=== PATIENT | female | born 1975 | race Caucasian/White ===

== ENCOUNTER 2016-08-29 17:27 | Outpatient (CLI) | payer OTHER ==
[2016-08-30] MEDS ORDERED: MULTIPLE VITAMIN PO (11:59)
== END 2016-08-29 23:00 ==
LOC: LAB SRH 17:27
DX: Z01.818 Encounter for other preprocedural examination (principal); N93.9 Abnormal uterine and vaginal bleeding, unspecified; D25.1 Intramural leiomyoma of uterus
CPT/HCPCS: 90001; 90004; 90047; 90074; 90155; 90197; 90364; 91004; 92863; 95059

== ENCOUNTER 2016-09-01 05:59 | Day surgery (SDC) | payer OTHER ==
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
[~2016-09-01 05:59] MED LIST: MULTIPLE VITAMIN PO
[2016-09-01] MEDS ORDERED: NORCO1 TA1 PO (11:08)
--- NOTE | 2016-09-01 11:10 | Provider's Discharge Care Plan ---
Problem, Goal, Plan Problem List 1. Post-op pain Goals: Improve disease control Instructions: Follow up as directed
--- NOTE | 2016-09-01 11:10 | Provider's Discharge Care Plan ---
Problem, Goal, Plan Problem List 1. Post-op pain Goals: Improve disease control Instructions: Follow up as directed
--- NOTE | 2016-09-01 12:37 | OPERATIVE REPORT ---
DATE OF SURGERY: 09/01/2016 SURGEON: Alexis Barreto MD LASER/ELECTRO OPTICS TECHNICIAN: Lizett Saul DO PREOPERATIVE DIAGNOSES: 1. Abnormal uterine bleeding 2. Leiomyomatous uteri 3. Pelvic pain POSTOPERATIVE DIAGNOSES: 1. Abnormal uterine bleeding 2. Leiomyomatous uteri 3. Pelvic pain. PROCEDURE PERFORMED: A 4-puncture supracervical hysterectomy with bilateral salpingectomy, ovaries remained intact. Morcellation of specimen intraabdominally. SURGICAL FINDINGS: Enlarged uterus with approximately 4 cm fibroid on the left side of the uterus, suspect intramural. ANESTHESIA: General endotracheal with Charis, ENGINEERING PROGRAM ANALYST. 30 mL of 0.5% bupivacaine and 1:200,000 epinephrine used subcutaneous at the end of the case placed on the stump. COMPLICATIONS: None. CONDITION: Good. ESTIMATED BLOOD LOSS: Less than 100 mL FLUIDS: 100 MATERIALS: No blood, no grafts, no implants. PATHOLOGY SPECIMEN: Supracervical morcellated with bilateral salpingectomy SURGICAL TECHNIQUE: The patient was prepped and draped in the usual fashion. Right before the incision, the time-out was performed, right patient, right procedure, right place. The 4 puncture sites were prepared, the 4 new trocars were placed. The 11 mm was placed directly without using the Veress needle, rapid insufflation was performed, the 3 other ports were 0.5 cm, placed directly visualized. The abdomen was evaluated, multiple pictures were taken of the gallbladder, upper right quadrant and lower right quadrant, ovary on the left, over on the right, the uterus. Half way through the procedure , the adnexa was shown and the final procedure was stump with meticulous hemostasis after morcellation and irrigation to prevent seeding. The Thunderbeat was used to dissect the salpinx from the ovary on each side and then covered down through the broad ligament through the transverse cervical vessels to the uterosacral ligament. At this point, the bladder flap had been established, the patient had a Szymanski in. The instrument was used, Thunderbeat, to obtain hemostasis along with the J hook, the specimen was removed using the Thunderbeat cautery and coag. Then a 15 mm port was placed on the right lateral side. The specimen was removed approximately 90% with the first pass being rotary and approximately 2 feet long, 50 cm or so, the second and third portions removed, the remainder of them in multiple small pieces were removed. Irrigation was performed. Hemostasis was obtained throughout. A J-hook was used to cauterize the cervical neck and the endocervical canal area. At this point in time, the case was terminated. Sponge, needle, tape and instrument count was correct after the two 11 mm and 15 mm sites had [id number] closure of #4 polyethylene. The patient was taken to the recovery room in good condition.
--- NOTE | 2016-09-01 12:37 | OPERATIVE REPORT ---
DATE OF SURGERY: 09/01/2016 SURGEON: Alexis Barreto MD MASTER SONAR TECHNICIAN: Lizett Saul DO PREOPERATIVE DIAGNOSES: 1. Abnormal uterine bleeding 2. Leiomyomatous uteri 3. Pelvic pain POSTOPERATIVE DIAGNOSES: 1. Abnormal uterine bleeding 2. Leiomyomatous uteri 3. Pelvic pain. PROCEDURE PERFORMED: A 4-puncture supracervical hysterectomy with bilateral salpingectomy, ovaries remained intact. Morcellation of specimen intraabdominally. SURGICAL FINDINGS: Enlarged uterus with approximately 4 cm fibroid on the left side of the uterus, suspect intramural. ANESTHESIA: General endotracheal with Charis, CLOTH MERCERIZER BACK TENDER. 30 mL of 0.5% bupivacaine and 1:200,000 epinephrine used subcutaneous at the end of the case placed on the stump. COMPLICATIONS: None. CONDITION: Good. ESTIMATED BLOOD LOSS: Less than 100 mL FLUIDS: 100 MATERIALS: No blood, no grafts, no implants. PATHOLOGY SPECIMEN: Supracervical morcellated with bilateral salpingectomy SURGICAL TECHNIQUE: The patient was prepped and draped in the usual fashion. Right before the incision, the time-out was performed, right patient, right procedure, right place. The 4 puncture sites were prepared, the 4 new trocars were placed. The 11 mm was placed directly without using the Veress needle, rapid insufflation was performed, the 3 other ports were 0.5 cm, placed directly visualized. The abdomen was evaluated, multiple pictures were taken of the gallbladder, upper right quadrant and lower right quadrant, ovary on the left, over on the right, the uterus. Half way through the procedure , the adnexa was shown and the final procedure was stump with meticulous hemostasis after morcellation and irrigation to prevent seeding. The Thunderbeat was used to dissect the salpinx from the ovary on each side and then covered down through the broad ligament through the transverse cervical vessels to the uterosacral ligament. At this point, the bladder flap had been established, the patient had a Szymanski in. The instrument was used, Thunderbeat, to obtain hemostasis along with the J hook, the specimen was removed using the Thunderbeat cautery and coag. Then a 15 mm port was placed on the right lateral side. The specimen was removed approximately 90% with the first pass being rotary and approximately 2 feet long, 50 cm or so, the second and third portions removed, the remainder of them in multiple small pieces were removed. Irrigation was performed. Hemostasis was obtained throughout. A J-hook was used to cauterize the cervical neck and the endocervical canal area. At this point in time, the case was terminated. Sponge, needle, tape and instrument count was correct after the two 11 mm and 15 mm sites had [id number] closure of #4 polyethylene. The patient was taken to the recovery room in good condition.
== END 2016-09-01 15:00 | disposition home or self-care (01) ==
LOC: OR SRH 05:59 → SCU SRH 06:01
PROVIDERS: Obstetrics & Gynecology
PROC: 0UT94ZZ Resection of Uterus, Percutaneous Endoscopic Approach (ICD-10-PCS; principal; 2016-09-01 08:30)
PROC: 0UT74ZZ Resection of Bilateral Fallopian Tubes, Percutaneous Endoscopic Approach (ICD-10-PCS; principal; 2016-09-01 08:30)
DX: N93.9 Abnormal uterine and vaginal bleeding, unspecified (principal); D25.1 Intramural leiomyoma of uterus; N80.0 Endometriosis of uterus; R10.2 Pelvic and perineal pain
CPT/HCPCS: 29240; 50002; 60001; 70002; 80102; 80212; 80248; 82669; 82794; 82897; 83587; 83718; 83982; 84038